=== PATIENT | female | born 1950 | race Two or more races ===

== ENCOUNTER 2024-11-05 11:34 | Emergency (ER) | payer MEDICARE, MEDICAID, SELFPAY ==
[2024-11-05 11:52] VITALS: BP 133/76; PULSE 83; RESP 18; TEMP 37.1; O2SAT 95; BMI 28.9
--- NOTE | 2024-11-05 11:55 | EKG_ITS ---
[facility] Test Date: 2024-11-05 Pat Name: TEJAL MOORE Department: Room: - Gender: Female Clinical Statistics Manager: : 1950 Requested By: Nathen Key (JUSTICE) Order Number: [id number] Reading MD: Nathen Key (RABBIT FANCIER) Measurements Intervals [place] Rate: 82 P: 42 OK: 149 QRS: 12 QRSD: 73 T: 15 QT: 383 QTc: 450 Interpretive Statements SINUS RHYTHM No previous ECG available for comparison /store/S0/[id number].pdf
--- NOTE | 2024-11-05 11:55 | XR_ITS ---
Examination: CT brain head without contrast. 2-D sagittal coronal reconstructions Date and time of exam:November 05, 2024 1224 hours INDICATIONS: Headache dizziness beginning today CTDI: vol (mGy):46.9 DLP: (mGycm):927 Technique: Multiple CT axial sections of the brain have been obtained, 5 mm slice thickness. Contrast has not been administered. 2-D sagittal, coronal reconstructions have been obtained Low dose protocols were performed. One or more of the following dose reduction techniques were used; automated exposure control, adjustment of the mA and/or KV according to patient size, use of iterative reconstruction technique. Findings: No significant ventricular enlargement. Intra-axial or extra-axial hemorrhage density is not seen. No mass effect or midline shift Basal cisterns are not remarkable. Fourth ventricle is midline. Cranial vault intact. Impression: Negative for acute hemorrhage, mass effect or midline shift Advise clinical correlation follow-up accordingly
--- NOTE | 2024-11-05 11:55 | XR_ITS ---
Examination: PA lateral chest 2 views TECHNIQUE: Upright PA lateral chest 2 views Date and time: November 05, 2024, 1237 hours INDICATIONS: Chest pain coughing beginning 3 days ago FINDINGS: Early pneumonia right base Normal heart size Mild elevation right hemidiaphragm Significant osteopenia IMPRESSION: Early pneumonia right base
--- NOTE | 2024-11-05 11:55 | EDRME_ITS ---
Rapid Medical Screening Exam [facility] Arrival date/time: 11/05/24 11:34 74-year-old female with no significant medical problems presents to the emergency department today for complaints of headache, weakness and dizziness fever and cough as well as sore throat Chief Complaint: Fever Vital signs: Vital Signs Temperature 98.8 F 11/05/24 11:52 Pulse Rate 83 11/05/24 11:52 Respiratory Rate 18 11/05/24 11:52 Blood Pressure 133/76 H 11/05/24 11:52 Pulse Oximetry (%) 95 11/05/24 11:52 Oxygen Delivery Method Room Air 11/05/24 11:52
[2024-11-05 13:02] LABS: Collection Type, Urine Clean Catch
[2024-11-05 13:14] LABS: Amorphous Crystals,Urine Present (Absent); Bacteria,Urine 1+; Bilirubin,Urine 1+ (Negative); Blood,Urine Negative (Negative); Clarity,Urine Turbid (Clear/Hazy); Color,Urine Drk-Yellow (Lt Yel-Yel); Glucose, Urine Negative (Negative); Ketones,Urine Negative (Negative); Leukocyte Esterase,Urine Negative (Negative); Nitrite,Urine Negative (Negative); PH,Urine 7.0 (5.0-7.0); Protein,Urine Trace (Neg - Trace); RBC,Urine 6 /hpf (0-3); Specific Gravity,Urine 1.018 (1.001-1.035); Squamous Epithelial Cell,Urine 4 /hpf (0-5); Transitional Epi Cells,Urine 1 /hpf (0-5); Urobilinogen,Urine 3.0 mg/dL (0.0-1.0); WBC,Urine 6 /hpf (0-5)
[2024-11-05 13:14] LABS: Strep A Rapid Negative (Negative)
[2024-11-05 13:19] LABS: Lactate (Lactic Acid) 1.0 mMol/L (0.4-2.0)
[2024-11-05 13:27] LABS: Basophils # (Auto) 0.0 Thou/mm3 (0.0-0.2); Basophils % (Auto) 0 % (0-2.5); Eosinophils # (Auto) 0.0 Thou/mm3 (0.0-0.5); Eosinophils % (Auto) 0 % (0-10); Hematocrit 34.4 % (36.0-46.0); Hemoglobin 12.2 g/dL (12.0-16.0); Immature Granulocytes Auto 0.02 Thou/mm3 (0.00-0.00); Lymphocytes # (Auto) 0.8 Thou/mm3 (1.0-4.8); Lymphocytes % (Auto) 14 % (10-50); Mean Corpuscular HGB Conc 35.5 g/dl (31.0-37.0); Mean Corpuscular Hemoglobin 31.9 pg (25.0-35.0); Mean Corpuscular Volume 90 fL (80-100); Monocytes # (Auto) 0.4 Thou/mm3 (0.0-0.8); Monocytes % (Auto) 7 % (0-12); Neutrophils # (Auto) 4.6 Thou/mm3 (1.8-7.7); Neutrophils % (Auto) 78 % (37-80); Nucleated Red Blood Cell # 0.00 Thou/mm3 (0.00-0.00); Nucleated Red Blood Cell % 0 /100 WBC (0); Platelet Count 153 Thou/mm3 (140-440); RDW Standard Deviation 41.8 fL (36.4-46.3); Red Blood Count 3.82 Miln/mm3 (4.00-5.20); White Blood Count 5.9 Thou/mm3 (3.6-11.0)
[2024-11-05 13:50] LABS: Alanine Aminotransferase 116 U/L (10-49); Albumin, Serum 4.3 gm/dL (3.4-4.8); Albumin/Globulin Ratio 1.2 (1.2-2.2); Alkaline Phosphatase 212 U/L (46-116); Anion Gap 10 (7-16); Aspartate Amino Transferase 110 U/L (0-34); BUN/Creatinine Ratio 17 Ratio (12-20); Bilirubin,Total 3.1 mg/dL (0.3-1.2); Blood Urea Nitrogen 17 mg/dL (9-23); Calcium 9.6 mg/dL (8.3-10.6); Calcium (Corrected) 9.6 mg/dL (8.5-10.1); Carbon Dioxide 23.3 mMol/L (20.0-31.0); Chloride 98 mMol/L (98-107); Creatinine (Component) 1.0 mg/dL (0.6-1.3); Estimated Creatinine Clearance 45.1 mL/min (>60); Globulin 3.6 gm/dL (2.3-3.5); Glucose 248 mg/dL (74-106); Osmolality,Calculated 272 (275-295); Potassium 3.5 mMol/L (3.4-5.1); Procalcitonin 3.79 ng/ml (0.0-0.49); Sodium 131 mMol/L (136-145); Total Protein 7.9 gm/dL (5.7-8.2); Troponin I < 0.020 ng/mL (0.0-0.045); eGFR 59 See Note
--- NOTE | 2024-11-05 15:26 | PD.EDURI ---
Upper Respiratory Inf. RME/HPI General Chief Complaint: Fever Stated Complaint: Cough, fever, runny nose,fall Arrival date/time: 11/05/24 11:34 RME / HPI RME / HPI Narrative: 11/05/24 11:34 74-year-old female with no significant medical problems presents to the emergency department today for complaints of headache, weakness and dizziness fever and cough as well as sore throat DR. KEANE MAIN ED EVALUATION: 74-year-old female presents with persistent flu-like symptoms for the past 4 weeks. She reports sore throat, body aches, headache, cough, and nasal congestion. She also notes nausea and yellow urine. She states she fell several days ago due to generalized weakness, but no injuries reported. Denies vomiting or diarrhea. PMHx: Not reported Medications: Lactulose Denies known drug allergies Related Data Home Medications ?Medication ?Instructions ?Recorded ?Confirmed ferrous sulfate 325 mg (65 mg 65 mg PO QDAY ##30 12/22/14 iron) tablet folic acid 1 mg tablet 1 mg PO QDAY #0 tabs 12/22/14 lactulose 10 gram/15 mL oral 30 ml PO TID ##946 12/22/14 solution Previous Rx's ?Medication ?Instructions ?Recorded ibuprofen 600 mg tablet 1 tab PO Q8HR PRN inflammation #14 12/22/14 tabs amoxicillin 875 mg-potassium 1 tab PO BID Pneumonia #14 tabs 11/05/24 clavulanate 125 mg tablet doxycycline hyclate 100 mg capsule 100 mg PO BID pneumonia #14 caps 11/05/24 Allergies Allergy/AdvReac Type Severity Reaction Status Date / Time No Known Allergies Allergy Unknown Verified 11/05/24 11:40 Review of Systems Review of Systems Systems Reviewed: All systems reviewed, normal except as documented Past Medical History Social History SMOKING STATUS: Never smoker SUBSTANCE USE: does not use ALCOHOL: Never ED Exam Narrative Physical exam: Constitutional: Awake, alert, nontoxic, no acute distress, elderly, overweight HEENT: NC, AT, EOMI Neck: Supple CV: RRR, no m/r/g Lungs: fine slight rales right side more than left Abd: Soft, NT, NT, no HSM noted to palpation Extremities: No deformities, no edema noted Neuro: AAOx3, CN 2-12 GIBL, no acute neuro deficit noted. Skin: Warm, dry, intact Course Course Course Narrative: 1620: Patient has early right-sided pneumonia. Labs show elevated procalcitonin at 3.6. Plan to discharge with antibiotics. Patient remains clinically stable throughout the emergency department visit. Re-assessment at the time of disposition demonstrates that the patient is in no acute distress. We reviewed all the results, analysis, and treatment plans. Patient is amenable to discharge. Strict return precautions were outlined. Patient was discharged in stable condition. Quality Measures none Orders Category Date Time Status Bedside COVID-19 Antigen Test NOW Care 11/05/24 11:55 Active Bedside Influenza A&B Antigen Test NOW Care 11/05/24 11:55 Active EKG (ED ONLY) *Do not use* NOW Care 11/05/24 11:[address] head/brain wo con Stat Exams 11/05/24 11:55 Completed EKG (ED Only) Stat Exams 11/05/24 11:55 Draft XR chest 2V Stat Exams 11/05/24 11:55 Completed Blood Culture (Lab) Stat Lab 11/05/24 13:00 Received CBC Stat Lab 11/05/24 13:00 Completed Comprehensive Metabolic Panel Stat Lab 11/05/24 13:00 Completed Lactate (Lactic Acid) Stat Lab 11/05/24 13:00 Completed Procalcitonin Stat Lab 11/05/24 13:00 Completed Strep A Rapid Stat Lab 11/05/24 12:01 Completed Troponin I Stat Lab 11/05/24 13:00 Completed Urinalysis Stat Lab 11/05/24 12:50 Completed Urine Culture Stat Lab 11/05/24 12:50 Received Doxycycline [Vibramycin] Med 11/05/24 16:14 Discontinued 100 mg PO X1 ONE cefTRIAXone [Rocephin] 1,000 mg Med 11/05/24 16:14 Discontinued Lidocaine 1% 20 ml [Xylocaine 1% 20 ML] 2.1 ml IM X1 Vital Signs Vital signs: Vital Signs Temperature 98.8 F 11/05/24 11:52 Pulse Rate 83 11/05/24 11:52 Respiratory Rate 18 11/05/24 11:52 Blood Pressure 133/76 H 11/05/24 11:52 Pulse Oximetry (%) 95 11/05/24 11:52 Oxygen Delivery Method Room Air 11/05/24 11:52 Upper Respiratory Infection MDM Narrative MDM Narrative:: I, Eboni Blade, am scribing for and in the presence of Dr. Keane. Patient data External records reviewed:: [facility] previous records Clinical information provided by:: patient Social determinants that could affect healthcare access:: none Patient has the following chronic illnesses:: PMHx: Not reported Medications: Lactulose Denies known drug allergies How is presenting disease/condition affected by chronic disease/condition?: uneffected by Evaluation data The following diagnostics were reviewed and interpreted by me:: lab results, radiology exam(s) and EKG tracing(s) (My interpretation: EKG performed at 1157 hours, sinus rhythm, rate 82, no STEMI) Lab and/or radiology exams considered but not ordered:: none Interpretation Summary: Procedure(s): CT head/brain wo con Accession Number(s): [id number] cc: Shahid (JUSTICE),Nathen RENDON; ENEDELIA MCKEON; Tray Kimball MD~ Examination: CT brain head without contrast. 2-D sagittal coronal reconstructions Date and time of exam:November 05, 2024 1224 hours INDICATIONS: Headache dizziness beginning today CTDI: vol (mGy):46.9 DLP: (mGycm):927 Technique: Multiple CT axial sections of the brain have been obtained, 5 mm slice thickness. Contrast has not been administered. 2-D sagittal, coronal reconstructions have been obtained Low dose protocols were performed. One or more of the following dose reduction techniques were used; automated exposure control, adjustment of the mA and/or KV according to patient size, use of iterative reconstruction technique. Findings: No significant ventricular enlargement. Intra-axial or extra-axial hemorrhage density is not seen. No mass effect or midline shift Basal cisterns are not remarkable. Fourth ventricle is midline. Cranial vault intact. Impression: Negative for acute hemorrhage, mass effect or midline shift Advise clinical correlation follow-up accordingly Dictated By: Tray Kimball MD Procedure(s): XR chest 2V Accession Number(s): [id number] cc: Shahid (JUSTICE),Nathen RENDON; ENEDELIA MCKEON; Tray Kimball MD~ Examination: PA lateral chest 2 views TECHNIQUE: Upright PA lateral chest 2 views Date and time: November 05, 2024, 1237 hours INDICATIONS: Chest pain coughing beginning 3 days ago FINDINGS: Early pneumonia right base Normal heart size Mild elevation right hemidiaphragm Significant osteopenia IMPRESSION: Early pneumonia right base Dictated By: Tray Kimball MD Medications / Prescriptions Medications or Prescriptions considered but not ordered:: none Medication administrations:: Medication Administration History Discontinued Medications Ceftriaxone Sodium 1,000 mg/ (Lidocaine HCl 2.1 ml) 0 mg IM X1 ONE Stop: 11/05/24 16:15 Doxycycline Hyclate (Doxycycline 100 Mg Tablet) 100 mg PO X1 ONE Stop: 11/05/24 16:15 see above if any Consultations Consultation(s) initiated? (list below): No Diagnosis Upper Respiratory Differential Diagnosis: other (Viral upper respiratory infection, bacterial pneumonia, UTI) Most likely diagnosis given after review of the tests above:: Early right-sided pneumonia Admission Indicated Admission indicated?: not indicated Admission Request Was there a request for admission?: No Disposition Plan Disposition Plan: Discharge Discharge Attestation Discharge Attestation: The patient and all family members were given an opportunity to ask questions and understood the discharge instructions. Discharge instructions specifically effects, indications for sooner follow up or return to the emergency department, and the expected course of current diagnosis. Patient condition: Stable Discharge Plan Plan Patient Disposition: HOME (Self Care) Patient condition on transfer: Stable Prescriptions/Referrals Prescriptions/Med Rec: New amoxicillin-pot clavulanate 875-125 mg tablet 1 tab PO BID Qty: 14 0RF doxycycline hyclate 100 mg capsule 100 mg PO BID Qty: 14 0RF No Action ibuprofen 600 MG tablet 1 tab PO Q8HR PRN (Reason: inflammation) Qty: 14 0RF ferrous sulfate 325 ( 65 )MG tablet 65 mg PO QDAY Qty: 30 folic acid 1 MG tablet 1 mg PO QDAY Qty: 0 lactulose 10 G/15 ML solution 30 ml PO TID Qty: 946 Referrals: Enedelia Mckeon MD [Primary Care Provider] - In 1 week Problem List Clinical Impression: Pneumonia Patient/Caregiver Discharge Instructions Education Materials: ED Pneumonia (Adult) Additional Instructions: Ve con potter doctor primario dentro de unos 5 browning para checarse de nuevo. Si empeora, regrese al hospital. Print Language: Tajik Stand Alone Forms: Mary Award Info., Patient Portal Info Letter
[2024-11-05] MEDS: DOXYCYCLINE 100 MG TABLET PO (17:12)
[2024-11-05] MEDS: cefTRIAXone 1,000 MG, LIDOCAINE 1% 20 ML 2.1 ML IM (17:14)
== END 2024-11-05 17:28 | disposition home or self-care (01) ==
PROVIDERS: Nurse Practitioner Primary Care; Emergency Provider Family Medicine; PCP Specialist
DX: J18.9 Pneumonia, unspecified organism (principal); R51.9 Headache, unspecified
CPT/HCPCS: 36415; 70450; 71046; 80053; 81001; 83605; 84145; 84484; 85025; 87040; 87086; 87651; 93005; 96372; 99284; J0696; J3490; A9270